=== PATIENT | male | born 1935 | race Caucasian/White ===

== ENCOUNTER 2018-03-21 08:34 | Day surgery (SDC) ==
[2018-03-21] MEDS: TETRACAINE 0.5% UNIT-DOSE OP PRN ×2 (11:15→11:54)
[2018-03-21] MEDS: BETADINE OPTH PREP OP PRN ×2 (11:15→11:54)
[2018-03-21] MEDS ORDERED: CYCLOGYL 2% OPTH OP PRN (11:26)
[2018-03-21] MEDS ORDERED: BSS WITH EPINEPHRINE OP ONE (11:26)
[2018-03-21] MEDS ORDERED: LIDOCAINE 1% 20 ML MDV ID STA (11:26)
[2018-03-21] MEDS ORDERED: DEX-MOXI-KETOR OPTH INJ 1/0.5/0.4 MG/ML IO ONE (11:26)
[2018-03-21] MEDS ORDERED: ZOFRAN 4 MG/2 ML IVP ONE (11:26)
[2018-03-21] MEDS ORDERED: LIDOCAINE 1%/PHENYLEPHRINE 1.5% BSS (SURGERY) INTRAOCULA ONE (11:26)
[2018-03-21] MEDS ORDERED: BRIMONIDINE TARTRATE 0.2% OPTH SOL OP PRN (11:26)
[2018-03-21 11:43] VITALS: TEMP 98.1
[2018-03-21] MEDS ORDERED: VERSED ONE (12:05)
[2018-03-21] MEDS ORDERED: SUBLIMAZE ONE (12:05)
[2018-03-21] MEDS ORDERED: DECADRON 4 MG/ML SDV ONE (12:05)
[2018-03-21] MEDS ORDERED: TORADOL ONE (12:05)
[2018-03-21 14:04] VITALS: BP 128/454
== END 2018-03-21 13:00 | disposition home or self-care (01) ==
LOC: SURG 08:34
PROVIDERS: ATTEND Ophthalmology
DX: H25.13 Age-related nuclear cataract, bilateral (principal)